=== PATIENT | female | born 1985 | race Caucasian/White ===

== ENCOUNTER 2018-04-18 14:36 | Emergency (ER) | payer OTHER ==
--- NOTE | 2018-04-18 14:58 | EDPHY ---
H & P Stated Complaint: intermittent cp/tightness over last week Time Seen by Provider: 04/18/18 14:57 HPI/ROS: CHIEF COMPLAINT: Palpitations, chest tightness HISTORY OF PRESENT ILLNESS: The patient is a 32 y/o female with a history of POTS complaining of episodic palpitations and chest tightness for the last week. She reports that with her diagnosis of POTS, chest pain and shortness of breath are not unusual, but this sensation is new and different. She describes what she calls palpitations during which she feels a "half second of chest tightness and compression." These occur 5-10 times per day and tend to cluster in the evening while getting ready for bed. She's had some nausea for weeks and has baseline abdominal discomfort following a ruptured appendix in the past. She currently feels okay, though slightly dizzy when sitting up. She denies acute abdominal pain, vomiting, diarrhea, fever, cold, cough, dysuria, recent illness, recent trauma. REVIEW OF SYSTEMS: A ten system review of systems was performed and is negative with the exception of the items mentioned in the HPI. Past medical history: POTS diagnosed 1 year ago - midodrine; shingles; ruptured appendix Past surgical history: Appendectomy Family history: Mother has POTS and hypothyroidism; sister has hypothyroidism; several family members with hypercholesterolemia. Social history: Recently moved here from [place]. 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 Rare alcohol use. 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 General Appearance: Alert. Vital signs reviewed. Blood pressure 135/77. Eyes: Pupils equal and round, no conjunctival injection, no discharge. Anicteric. ENT, Mouth: Mucous membranes are moist, no oropharyngeal erythema or edema. Neck: No lymphadenopathy, supple. No thyromegaly. Respiratory: Lungs are clear to auscultation; no wheezes, rales, or rhonchi. Cardiovascular: Regular rate and rhythm; no murmur, rub, or gallop. Gastrointestinal: Abdomen is soft and nontender, no masses or organomegaly. Skin: Warm and dry, no rashes on exposed skin, normal color. Back: Nontender to palpation over the thoracolumbar spine. No CVAT. Extremities: No lower extremity edema, no calf tenderness or swelling. Neurological: Alert and oriented. Moving all four extremities easily and equally. Psychiatric: Normal affect. - Personal History LMP (Females 10-55): Extended Cycle BCP/Inj Current Tetanus Diphtheria and Acellular Pertussis (TDAP): Yes - Medical/Surgical History Hx Asthma: No Hx Chronic Respiratory Disease: No Hx Diabetes: No Hx Cardiac Disease: Yes Hx Renal Disease: No Hx Cirrhosis: No Hx Alcoholism: No Hx HIV/AIDS: No Hx Splenectomy or Spleen Trauma: No Other PMH: prado appy - Social History Smoking Status: Never smoked Constitutional: Initial Vital Signs Temperature (C) 36.6 C 04/18/18 14:40 Heart Rate 78 04/18/18 14:40 Respiratory Rate 18 04/18/18 14:40 Blood Pressure 135/77 H 04/18/18 14:40 O2 Sat (%) 94 04/18/18 14:40 O2 Delivery Mode Room Air Allergies/Adverse Reactions: tramadol Allergy (Verified 04/18/18 14:40) Home Medications: Medication Instructions Recorded Midodrine HCl 04/18/18 Nexplanon 04/18/18 Medical Decision Making ED Course/Re-evaluation: This is a 32 y/o female with a history of POTS who presents with a 1-week history of episodic palpitations with chest tightness. She has an unremarkable exam. Plan for IV, labs, EKG. The 12 lead EKG was interpreted by myself. Sinus mechanism rate 63. See hard copy and/or "tracemaster" electronic copy for interpretation. Reassessed patient. She is feeling about the same and requests IV fluids. 1L IV NS ordered. IVF have helped her in the past when she is feeling "off". Labs unremarkable including POC troponin, TSH, and d-dimer. She is not anemic and has normal electrolytes. I think ACS unlikely and do not recommend further evaluation for ACS--her discomfort is quite atypical. I do not suspect PE. She has not had tachycardia in ED. No syncope in ED. 1653: Reevaluated patient. She is feeling improved and would like to return home. Recommended following up with cardiology and PCP in the next week. Return precautions discussed. She is comfortable with this plan. Differential Diagnosis: Chest pain including but not limited to myocardial ischemia, pulmonary embolus, chest wall pain, pleural inflammation and pulmonary infectious causes. - Data Points Laboratory Results: Laboratory Results 04/18/18 15:01 04/18/18 15:01 Medications Given: Discontinued Medications Sodium Chloride (Ns) 1,000 mls @ 0 mls/hr IV ONCE ONE; Wide Open PRN Reason: Protocol Stop: 04/18/18 16:09 Last Admin: 04/18/18 16:28 Dose: 1,000 mls Point of Care Test Results: Chemistry 04/18/18 15:13 POC Troponin I 0.00 ng/mL ng/mL (0.00-0.08) Departure - Departure Disposition: Home, Routine, Self-Care Clinical Impression: Palpitations Condition: Good Instructions: Heart Palpitations (ED) Additional Instructions: 1. Increase fluid intake. 2. 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 You've been referred to Dr. Garcia locally if needed. 3. Follow up with primary care provider to establish care locally. You've been referred to Dr. Chaves. 4. Return to the ED for severe pain, difficulty breathing, fainting, or other worsening of condition. Referrals: Alan Chaves MD [[facility] [place] Provider] - As per Instructions Rylan Garcia MD [Medical Doctor] - As per Instructions Report Scribed for: Charlette Bean Report Scribed by: Gianna Fuentes Date of Report: 04/18/18 Time of Report: 15:26 Physician Review and Approval Statement: 04/18/18 14:57 Portions of this note were transcribed by the medical insurance verifier. I, Dr. Charlette Bean, personally performed the history, physical exam, and medical decision- making; and confirmed the accuracy of the information in the transcribed note.
[2018-04-18 15:16] LABS: PLATELET COUNT 313 10^3/uL (150-400)
[2018-04-18] MEDS ORDERED: NS 1,000 ML IV ONE (16:08)
[2018-04-18 17:13] VITALS: BP 114/79
--- NOTE | 2018-04-18 23:29 | CPEKG ---
Test Reason : OPEN Blood Pressure : / mmHG Vent. Rate : 063 BPM Atrial Rate : 062 BPM P-R Int : 120 ms QRS Dur : 084 ms QT Int : 399 ms P-R-T Axes : 007 043 008 degrees QTc Int : 409 ms Sinus rhythm Confirmed by Charlette Bean ([id number]) on 04/18/2018 11:28:53 PM Referred By: Charlette Bean Confirmed By:Charlette Bean
== END 2018-04-18 17:13 | disposition home or self-care (01) ==
DX: R00.2 Palpitations (principal); R07.89 Other chest pain; E86.9 Volume depletion, unspecified
CPT/HCPCS: 84484-ER